=== PATIENT | female | born 2000 | race Caucasian/White ===

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

== ENCOUNTER 2023-06-03 11:44 | Emergency (ER) | payer MEDICAID, OTHER ==
[~2023-06-03] VITALS: Ht 149.9 cm; Wt 50.4 kg
[~2023-06-03 11:44] MED LIST changes: +ALBU8.5H17 IH; -ALBU8.5H8 IH; +CEPH-585 PO; -CEPH500C5 PO
[2023-06-03 13:00] LABS: URINE HCG NEGATIVE (NEG)
[2023-06-03 13:07] LABS: BILIRUBIN,URINE NEGATIVE (Neg); CLARITY,URINE SLIGHTLY CLOUDY (Clear); COLOR,URINE YELLOW (Yellow); GLUCOSE, URINE NEGATIVE (Neg); KETONES,URINE 15 mg/dl (Neg); LEUKOCYTE ESTERASE ,URINE TRACE (Neg); NITRITES, URINE POSITIVE (Neg); OCCULT BLOOD,URINE TRACE-INTACT (Neg); PH,URINE 5.5 (4.8-8.0); PROTEIN,URINE 30 mg/dl (Neg); UROBILINOGEN,URINE 0.2 E.U/dL (0.2-1.0)
[2023-06-03 13:11] LABS: UA COLLECTION TYPE CLN CATCH MIDSTREAM
[2023-06-03 13:15] LABS: URINE AMPHETAMINE SCREEN NEGATIVE (Neg); URINE BARBITUATE SCREEN NEGATIVE (Neg); URINE BENZODIAZEPINES SCREEN NEGATIVE (Neg); URINE CANNABINOID SCREEN POSITIVE (Neg); URINE COCAINE SCREEN NEGATIVE (Neg); URINE METHADONE SCREEN NEGATIVE (Neg); URINE OPIATE SCREEN NEGATIVE (Neg); URINE PHENCYCLIDINE SCREEN NEGATIVE (Neg)
[2023-06-03 13:18] LABS: MUCUS STRANDS FEW /LPF (Neg); SQUAMOUS EPITHELIAL CELL,UR MANY /LPF (FEW)
[2023-06-03 13:19] LABS: BACTERIA,URINE 3+ /HPF (Neg); RBC,URINE 0-2 /HPF (0-2); TRANSITIONAL EPI CELLS,URINE FEW /HPF
--- NOTE | 2023-06-03 13:19 | NUR ---
tech roomed pt to room 10
[2023-06-03 13:26] LABS: ALANINE AMINOTRANSFERASE 18 U/L (12-78); ALBUMIN 5.2 G/DL (3.4-5.0); ALBUMIN/GLOBULIN RATIO 1.6 (1.1-1.5); ALKALINE PHOSPHATASE 64 IU/L (46-116); ANION GAP 14 (8-16); ASPARTATE AMINO TRANSFERASE 21 U/L (10-37); BILIRUBIN,TOTAL 0.9 MG/DL (0.1-1.0); BLOOD UREA NITROGEN 11 MG/DL (7-18); BUN/CREATININE RATIO 11.3 (10.0-20.0); CALCIUM 9.8 MG/DL (8.5-10.1); CHLORIDE 103 MMOL/L (99-107); CREATININE 0.97 MG/DL (0.40-0.90); GLUCOSE 62 MG/DL (70-104); POTASSIUM 3.7 MMOL/L (3.5-5.1); SODIUM 141 MMOL/L (135-145); TOTAL CARBON DIOXIDE 24.3 MMOL/L (24-32); TOTAL PROTEIN 8.5 G/DL (6.4-8.2); eCRCL 63 ML/MIN; eGFR 72 ML/MIN
[2023-06-03 13:31] LABS: BASOPHILS # (AUTO) 0.1 X10'3 (0-0.2); BASOPHILS % (AUTO) 0.3 % (0-1); EOSINOPHILS % (AUTO) 0.2 % (0-6); HEMATOCRIT 47.2 % (35.0-45.0); HEMOGLOBIN 15.8 g/dl (12.0-16.0); LYMPHOCYTES # (AUTO) 2.1 X10'3 (1.1-4.8); LYMPHOCYTES % (AUTO) 12.1 % (21-51); MEAN CORPUSCULAR HEMOGLOBIN 29.3 PG (27.0-31.0); MEAN CORPUSCULAR HGB CONC 33.5 g/dL (33.0-36.5); MEAN CORPUSCULAR VOLUME 87.5 FL (78-98); MEAN PLATELET VOLUME 9.1 FL (7.4-10.4); MONOCYTES # (AUTO) 1.1 X10'3 (0-0.9); MONOCYTES % (AUTO) 6.4 % (2-12); NEUTROPHILS # (AUTO) 14.3 X10'3 (1.8-7.7); PLATELET COUNT 273 X10'3 (140-440); RED BLOOD COUNT 5.39 X10'6 (4.20-5.60); RED CELL DISTRIBUTION WIDTH 12.8 % (11.5-14.5); WHITE BLOOD COUNT 17.6 X10'3 (4.5-11.0)
[2023-06-03 13:36] LABS: ETHANOL 14 MG/DL (<10); THYROID STIMULATING HORMONE 0.65 ulU/ml (0.34-4.50)
--- NOTE | 2023-06-03 15:29 | NUR ---
[facility] [place]. [phone]
--- NOTE | 2023-06-03 17:13 | NUR ---
patient sitting up in bed talking on phone to loved one with no distress noted at this time.
[2023-06-03] MEDS ORDERED: CEFD300C3 PO (18:46)
[2023-06-03 18:55] VITALS: BP 126/72; PULSE 90; RESP 16; TEMP 98.5; O2SAT 100
== END 2023-06-03 18:58 | disposition still patient (30) ==
LOC: ER 11:45 → EEVIPCON 11:45 → ER 18:58
DX: R45.851 Suicidal ideations (principal); Z20.822 Contact with and (suspected) exposure to COVID-19; F32.A Depression, unspecified; N39.0 Urinary tract infection, site not specified
CPT/HCPCS: 36415; 80053; 80305; 80320; 81001; 81025; 84443; 85025; 87811; 99285; A6449

== ENCOUNTER 2024-06-17 18:01 | Emergency (ER) | payer MEDICAID ==
[~2024-06-17] VITALS: Ht 149.9 cm; Wt 45.5 kg
[2024-06-17 18:50] LABS: BASOPHILS % (AUTO) 0.3 % (0-1); EOSINOPHILS % (AUTO) 0.1 % (0-6); HEMATOCRIT 39.8 % (35.0-45.0); HEMOGLOBIN 13.5 g/dl (12.0-16.0); LYMPHOCYTES # (AUTO) 0.4 X10'3 (1.1-4.8); LYMPHOCYTES % (AUTO) 4.9 % (21-51); MEAN CORPUSCULAR HEMOGLOBIN 29.6 PG (27.0-31.0); MEAN CORPUSCULAR VOLUME 87.1 FL (78-98); MEAN PLATELET VOLUME 8.8 FL (7.4-10.4); MONOCYTES % (AUTO) 11.2 % (2-12); NEUTROPHILS # (AUTO) 7.3 X10'3 (1.8-7.7); NEUTROPHILS % (AUTO) 83.5 % (42-75); PLATELET COUNT 217 X10'3 (140-440); RED BLOOD COUNT 4.57 X10'6 (4.20-5.60); RED CELL DISTRIBUTION WIDTH 12.7 % (11.5-14.5); WHITE BLOOD COUNT 8.8 X10'3 (4.5-11.0)
[2024-06-17 19:04] LABS: APTT 26 SECONDS (22-32); INR 1.1 INR; PROTHROMBIN TIME 11.1 SECONDS (9.0-12.0)
[2024-06-17 19:07] LABS: ALANINE AMINOTRANSFERASE 17 U/L (12-78); ALBUMIN 4.4 G/DL (3.4-5.0); ALBUMIN/GLOBULIN RATIO 1.5 (1.1-1.5); ALKALINE PHOSPHATASE 53 IU/L (46-116); ANION GAP 11 (8-16); ASPARTATE AMINO TRANSFERASE 12 U/L (10-37); BILIRUBIN,TOTAL 0.6 MG/DL (0.1-1.0); BLOOD UREA NITROGEN 10 MG/DL (7-18); BUN/CREATININE RATIO 12.8 (10.0-20.0); CALCIUM 8.8 MG/DL (8.5-10.1); CHLORIDE 103 MMOL/L (99-107); CREATININE 0.78 MG/DL (0.40-0.90); GLUCOSE 87 MG/DL (70-104); POTASSIUM 3.5 MMOL/L (3.5-5.1); SODIUM 139 MMOL/L (135-145); TOTAL CARBON DIOXIDE 24.7 MMOL/L (24-32); TOTAL PROTEIN 7.4 G/DL (6.4-8.2); eCRCL 77 ML/MIN; eGFR > 90 ML/MIN
[2024-06-17 19:31] LABS: BETA HCG,QUANTITATIVE 1248 mIU/ml
[2024-06-18 00:48] VITALS: BP 94/62; PULSE 105; RESP 18; TEMP 99.1; O2SAT 95
== END 2024-06-18 00:50 | disposition home or self-care (01) ==
LOC: ER 18:01
DX: O03.4 Incomplete spontaneous abortion without complication (principal); O26.891 Other specified pregnancy related conditions, first trimester; O98.511 Other viral diseases complicating pregnancy, first trimester; U07.1 COVID-19; R50.9 Fever, unspecified; R10.9 Unspecified abdominal pain; F41.9 Anxiety disorder, unspecified; F12.90 Cannabis use, unspecified, uncomplicated; Z3A.01 Less than 8 weeks gestation of pregnancy; Z88.0 Allergy status to penicillin; Z91.040 Latex allergy status; Z88.1 Allergy status to other antibiotic agents; Z79.899 Other long term (current) drug therapy; Z79.2 Long term (current) use of antibiotics
CPT/HCPCS: 36415; 76801; 80053; 84702; 85025; 85610; 85730; 87811; 99284

== ENCOUNTER 2025-04-21 20:21 | Emergency (ER) | payer MEDICAID ==
[~2025-04-21] VITALS: Ht 152.4 cm; Wt 52.1 kg
--- NOTE | 2025-04-21 20:50 | Physician Documentation ---
History of Present Illness ~ Chief Complaint: Bite-insect Stated Complaint: INSECT BITE Time Seen by MD: 20:49 HPI Patient presents to the emergency room with concerns for an insect bite to her left forearm. She states she noticed it yesterday and today that has started to be some redness that is beginning to spread outside a designated line she had initially drawn earlier in the day. No fevers Tetanus within 5 years?: No Medication Reconciliation Allergies: Coded Allergies: Penicillins (Verified Allergy, Severe, ANAPHYLAXIS, 06/03/23) latex (Unverified Allergy, Mild, hives, 06/03/23) Uncoded Allergies: AZYTHROMYCIN (Allergy, Intermediate, HIVES, 08/06/19) Scheduled Cephalexin*Monohydrate* (Keflex*), 1 CAP PO BID Scheduled PRN Albuterol Sulfate (Proair Hfa), 2 PUFFS IH Q6H PRN for SOB or wheezing Past Medical History Past Medical History: No Pertinent History, Anxiety Past Surgical History: no surgical history Alcohol Use: None Drug Use: marijuana Lives with: Family Lives In: Home Occupation: employed Review of Systems ROS All review of systems negative except as per HPI Physical Exam Vital Signs: Temperature: 97.9, Heart Rate: 97, Respiratory Rate: 16, BP: 120/78, Pulse Oximetry: 100, Weight: 52.100 Oxygen Flow Rate: 0 Physical Exam General: Patient is awake, alert, oriented x4 in no acute distress and well appearing.~ Head: Normocephalic and atraumatic. Eyes: Conjunctival normal. EOMI. PERRL. ENT: Mucous membranes moist. Neck: Supple, trachea is midline. Chest: Clear to auscultation bilaterally without rales, rhonchi, or wheezes. There is no accessory muscle use or retractions. Cardiac: RRR without murmurs, gallops, or rubs. Extremity: Area of erythema and swelling noted to patient's left volar forearm measuring 3 cm x 2 cm. No fluctuance Progress Results/Orders Results/Orders Vital Signs 04/21/25 20:39 Temp 97.9 Pulse 97 Resp 16 B/P (MAP) 120/78 Pulse Ox 100 O2 Flow Rate 0 Medical Decision Making Findings Patient presented to the emergency room with insect bite as per HPI. Differentials include but are not limited to local skin reaction, hive, cellulitis, abscess. Physical exam that has concern for possible cellulitis and given risks versus benefit we will treat with antibiotics. Departure Disposition: HOME / SELF CARE / HOMELESS Impression: Primary Impression: Insect bites Condition: Stable Discharge Instructions: Cellulitis, Adult Referrals: NO PRIMARY CARE PROVIDER (PCP) Prescriptions Cephalexin*Monohydrate* (Keflex*) 500 Mg Capsule 1 CAP PO Q12H for 10 Days, #20 CAP Prov: HESHAM POZO MD 04/21/25 Education Educated: Patient Educated regarding: diagnosis, treatment, need for follow up Signature Scribe Signature: No scribe Attestation: The note accurately reflects work and decisions made by me.Hesham Pozo MD 04/21/25 20:54 HESHMA POZO MD Apr 21, 2025 20:50
[2025-04-21] MEDS ORDERED: CEPH-585 PO (20:54)
[2025-04-21 21:15] VITALS: BP 120/76; PULSE 94; RESP 18; TEMP 98.6; O2SAT 99
== END 2025-04-21 21:15 | disposition home or self-care (01) ==
LOC: ER 20:21
DX: S51.852A Open bite of left forearm, initial encounter (principal); F12.90 Cannabis use, unspecified, uncomplicated; Z88.0 Allergy status to penicillin; Z91.040 Latex allergy status; W57.XXXA Bitten or stung by nonvenomous insect and other nonvenomous arthropods, initial encounter; Y93.89 Activity, other specified; Y92.89 Other specified places as the place of occurrence of the external cause; Y99.8 Other external cause status
CPT/HCPCS: 99283